=== PATIENT | male | born 1950 | race Caucasian/White ===

== ENCOUNTER 2021-05-20 17:18 | Emergency (ER) | payer MEDICARE, OTHER ==
[~2021-05-20] VITALS: Ht 185.4 cm; Wt 100.0 kg
[~2021-05-20 17:18] MED LIST: ASPIRIN 81M81 MG/TA2 PO; CELEXA 20MG20 MG/TAB PO; HCTZ 25MG TAB25 MG PO; LOPID 600M600 MG/TAB PO; NEURONTIN100 MG/CAP PO; NITRO-DUR0.2 MG/PAT TD; NORVASC 10MG10 MG PO; PRAVACHOL 40MG40 MG PO
[2021-05-20 17:31] VITALS: TEMP 99.4
[2021-05-20 18:53] LABS: BASO % 0.4 % (0.0-2.0); EOS # 0.1 K/mm3 (0.0-0.7); EOS % 1.2 % (0.0-4.0); GRAN # 6.5 K/mm3 (1.4-6.5); GRAN % 81.7 % (42.2-75.2); HEMATOCRIT 44.6 % (42.0-52.0); LYMPH # 0.7 K/mm3 (1.2-3.4); LYMPH % 8.6 % (20.0-51.0); MEAN CELL VOLUME 85 fl (80.0-100.0); MEAN CORPUSCULAR HEMOGLOBIN 29 pg (27-31); MEAN CORPUSCULAR HGB CONC 34 g/dl (33.0-37.0); MEAN PLATELET VOLUME 10.7 fl (7.4-10.4); MONO # 0.6 K/mm3 (0.1-0.6); MONO % 7.5 % (1.7-9.3); PLATELET COUNT 227 K/mm3 (130-400); RED BLOOD COUNT 5.23 M/mm3 (4.20-5.60)
[2021-05-20 19:05] LABS: ALBUMIN 3.3 gm/dL (3.4-4.8); BILIRUBIN,TOTAL 0.7 mg/dL (0.2-1.2); C-REACTIVE PROTEIN 1.62 mg/dL (0.00-0.50); CALCIUM 8.9 mg/dL (8.4-10.2); CREATININE, serum 0.85 mg/dL (0.72-1.25); POTASSIUM 3.4 mmol/L (3.5-4.5); TOTAL PROTEIN 7.3 gm/dL (6.2-8.1)
[2021-05-20 21:48] LABS: COLLECTION METHOD CLEAN CATCH
[2021-05-20 21:56] LABS: MUCOUS Present (NOT PRESENT); PH 6 (5-8); SQUAMOUS EPITHELIAL 0-2 /hpf (0-10); URINE APPEARANCE Clear (CLEAR/HAZY); URINE BACTERIA None Seen /hpf (NONE SEEN); URINE BILIRUBIN Negative (NEGATIVE); URINE BLOOD Negative (NEGATIVE); URINE COLOR Yellow (YELLOW); URINE GLUCOSE Negative (NEGATIVE); URINE KETONE Negative (NEGATIVE); URINE LEUKOCYTE ESTERASE Negative (NEGATIVE); URINE NITRATE Negative (NEGATIVE); URINE PROTEIN(semi-quant) Negative (NEGATIVE); URINE RBC 0-2 /hpf (0-2); URINE UROBILINOGEN Negative (NEGATIVE)
[2021-05-20] MEDS ORDERED: LEVAQUIN 5500 MG/TA1 PO ×2 (22:37)
[2021-05-20 22:51] VITALS: BP 144/78; PULSE 76
== END 2021-05-20 22:51 | disposition home or self-care (01) ==
LOC: COL.ER 17:18
PROVIDERS: Physician Assistant
DX: J01.00 Acute maxillary sinusitis, unspecified (principal); M54.2 Cervicalgia; Z20.822 Contact with and (suspected) exposure to COVID-19
CPT/HCPCS: J1200; J1885; J2765; J7030

== ENCOUNTER 2021-05-22 08:44 | Inpatient (IN) | payer MEDICARE, OTHER ==
[~2021-05-22] VITALS: Ht 185.4 cm; Wt 105.8 kg
[~2021-05-22 08:44] MED LIST changes: +LEVAQUIN 5500 MG/TA1 PO
[2021-05-22 09:35] LABS: BASO % 0.5 % (0.0-2.0); EOS # 0.7 K/mm3 (0.0-0.7); EOS % 10.4 % (0.0-4.0); GRAN # 3.6 K/mm3 (1.4-6.5); GRAN % 56.1 % (42.2-75.2); HEMATOCRIT 42.6 % (42.0-52.0); HEMOGLOBIN 14.4 g/dl (13.5-18.0); LYMPH # 1.5 K/mm3 (1.2-3.4); LYMPH % 23.4 % (20.0-51.0); MEAN CELL VOLUME 85 fl (80.0-100.0); MEAN CORPUSCULAR HEMOGLOBIN 29 pg (27-31); MEAN CORPUSCULAR HGB CONC 34 g/dl (33.0-37.0); MEAN PLATELET VOLUME 10.3 fl (7.4-10.4); MONO # 0.6 K/mm3 (0.1-0.6); MONO % 9.3 % (1.7-9.3); PLATELET COUNT 207 K/mm3 (130-400); REDCELL DISTRIBUTION WIDTH-CV 13.1 % (11.5-14.5)
[2021-05-22 09:56] LABS: ALBUMIN 3.1 gm/dL (3.4-4.8); BILIRUBIN,TOTAL 0.5 mg/dL (0.2-1.2); C-REACTIVE PROTEIN 0.69 mg/dL (0.00-0.50); CALCIUM 8.5 mg/dL (8.4-10.2); CREATININE, serum 0.89 mg/dL (0.72-1.25); POTASSIUM 3.7 mmol/L (3.5-4.5); TOTAL PROTEIN 6.7 gm/dL (6.2-8.1)
[2021-05-22 11:45] LABS: GLUCOSE,CSF 41 mg/dL (40-70); TOTAL PROTEIN,CSF 121 mg/dL (15-45)
[2021-05-22 11:51] LABS: CSF APPEARANCE CLEAR; CSF COLOR COLORLESS
[2021-05-22 11:52] LABS: CSF MONONUCLEAR 99 % (70-100); CSF POLYMORPHONUCLEAR 1 % (0-6); CSF RBC 2 /mm3 (0-0)
[2021-05-22 11:53] LABS: CSF APPEARANCE CLEAR; CSF COLOR COLORLESS
[2021-05-22 11:54] LABS: CSF MONONUCLEAR 100 % (70-100); CSF POLYMORPHONUCLEAR 1 % (0-6); CSF RBC < 1 /mm3 (0-0)
[2021-05-22] MEDS ORDERED: ZOLOFT 100MG100 MG PO (13:09)
[2021-05-22] MEDS ORDERED: FLOMAX 0.40.4 MG/CAP PO (13:09)
--- NOTE | 2021-05-22 16:30 | NUR ---
Pt arrived to medical unit room 317 from ER at this time. Oriented pt to room. Admission assessments and med rec updated. Pt denies headache, nausea, pain, or other concerns at this time. NS running to right AC IV per orders. Denies needs at this time. Continuing to monitor.
[2021-05-22 17:03] VITALS: BP 114/60; PULSE 70; TEMP 98.3
[2021-05-22 19:54] VITALS: BP 120/65; PULSE 67; TEMP 97.9
[2021-05-22 23:27] VITALS: BP 123/61; PULSE 63; TEMP 98.2
[2021-05-23 04:45] VITALS: BP 132/64; PULSE 55; TEMP 98.5
[2021-05-23 06:36] LABS: BASO % 0.4 % (0.0-2.0); EOS % 0.1 % (0.0-4.0); GRAN # 5.3 K/mm3 (1.4-6.5); GRAN % 76.7 % (42.2-75.2); HEMATOCRIT 38.1 % (42.0-52.0); HEMOGLOBIN 13.1 g/dl (13.5-18.0); LYMPH # 0.9 K/mm3 (1.2-3.4); LYMPH % 13.6 % (20.0-51.0); MEAN CELL VOLUME 85 fl (80.0-100.0); MEAN CORPUSCULAR HEMOGLOBIN 29 pg (27-31); MEAN CORPUSCULAR HGB CONC 34 g/dl (33.0-37.0); MEAN PLATELET VOLUME 10.3 fl (7.4-10.4); MONO # 0.6 K/mm3 (0.1-0.6); MONO % 8.5 % (1.7-9.3); PLATELET COUNT 186 K/mm3 (130-400); RED BLOOD COUNT 4.51 M/mm3 (4.20-5.60); REDCELL DISTRIBUTION WIDTH-CV 12.6 % (11.5-14.5)
[2021-05-23 06:48] LABS: CREATININE, serum 0.81 mg/dL (0.72-1.25); POTASSIUM 3.8 mmol/L (3.5-4.5)
[2021-05-23 07:52] VITALS: BP 135/67; PULSE 63; TEMP 97.8
--- NOTE | 2021-05-23 08:10 | NUR ---
Pt assessment complete. Pt is A/O x4. His breathing is even and unlabored on RA. Pt denies SOB. Pt denies any pain, headache or neck aches at this time. No N/V. IVF infusing per orders. No needs at this time. Call light within reach.
--- NOTE | 2021-05-23 11:41 | NUR ---
Discharge instructions and paperwork reviewed with patient, all questions answered at this time. IV to Lhand and RAC dc'd catheter tips intact. Pt wheeled out of facility at this time.
--- NOTE | 2021-05-23 12:32 | NUR ---
cement and concrete plant worker met with patient to discuss discharge plan. Patient currently lives at home with his Kassandra ([phone]) here in [place]. Patient is independent with his ADL's and does not utilize any DME to assist with mobility. PCP is Dr. Cochran and he utilizes [facility] for mediations. Patient reports that his medical DPOA-HC is Maria De Jesus Alejandro. Patient is planning on discharging today and will return home. Discharge plan: Home
--- NOTE | 2021-05-23 13:15 | NUR ---
First visit from the bar roller. No needs right now.
== END 2021-05-23 11:41 | disposition home or self-care (01) | DRG 76 ==
LOC: COL.ER 08:44 → MEDICAL 13:20
PROVIDERS: Emergency Medicine; Nurse Practitioner Family; ADMIT Student in an Organized Health Care Education/Training Program
PROC: 009U3ZX Drainage of Spinal Canal, Percutaneous Approach, Diagnostic (ICD-10-PCS; principal; 2021-05-22)
DX: A87.9 Viral meningitis, unspecified (principal); I10 Essential (primary) hypertension; E78.5 Hyperlipidemia, unspecified; N40.0 Benign prostatic hyperplasia without lower urinary tract symptoms; F32.A Depression, unspecified; I35.0 Nonrheumatic aortic (valve) stenosis; I44.7 Left bundle-branch block, unspecified; I25.10 Atherosclerotic heart disease of native coronary artery without angina pectoris; M19.90 Unspecified osteoarthritis, unspecified site; Z20.822 Contact with and (suspected) exposure to COVID-19; Z79.82 Long term (current) use of aspirin; Z23 Encounter for immunization
CPT/HCPCS: 99222-AI; 99239; J0133; J0290; J0696; J0780; J1100; J1200; J1885; J2550; J2765; J7030; J7050

== ENCOUNTER 2022-04-16 12:05 | Outpatient (RCR) | payer MEDICARE, OTHER ==
[~2022-04-16 12:05] MED LIST changes: +FLOMAX 0.40.4 MG/CAP PO; +ZOLOFT 100MG100 MG PO
== END 2022-04-17 | disposition home or self-care (01) ==
LOC: COL.CR
DX: Z48.812 Encounter for surgical aftercare following surgery on the circulatory system (principal); Z95.3 Presence of xenogenic heart valve

== ENCOUNTER 2022-05-14 11:32 | Outpatient (RCR) | payer MEDICARE, OTHER | END 2022-05-14 15:00 | disposition home or self-care (01) | LOC: COL.CR 11:32 | DX: Z48.812 Encounter for surgical aftercare following surgery on the circulatory system (principal); Z95.2 Presence of prosthetic heart valve ==

== ENCOUNTER 2023-01-09 19:56 | Inpatient (IN) | payer MEDICARE, OTHER ==
[~2023-01-09] VITALS: Ht 185.4 cm; Wt 92.5 kg
[2023-01-09 20:20] LABS: BASO % 0.4 % (0.0-2.0); EOS # 0.3 K/mm3 (0.0-0.7); EOS % 3.8 % (0.0-4.0); GRAN # 6.9 K/mm3 (1.4-6.5); GRAN % 77.3 % (42.2-75.2); HEMATOCRIT 42.4 % (42.0-52.0); HEMOGLOBIN 14.5 g/dl (13.5-18.0); LYMPH # 0.9 K/mm3 (1.2-3.4); LYMPH % 10.2 % (20.0-51.0); MEAN CELL VOLUME 84 fl (80.0-100.0); MEAN CORPUSCULAR HEMOGLOBIN 29 pg (27-31); MEAN CORPUSCULAR HGB CONC 34 g/dl (33.0-37.0); MEAN PLATELET VOLUME 10.2 fl (7.4-10.4); MONO # 0.7 K/mm3 (0.1-0.6); MONO % 7.9 % (1.7-9.3); PLATELET COUNT 158 K/mm3 (130-400); RED BLOOD COUNT 5.03 M/mm3 (4.20-5.60)
[2023-01-09 20:39] LABS: ALBUMIN 3.8 gm/dL (3.4-4.8); BILIRUBIN,TOTAL 0.8 mg/dL (0.2-1.2); C-REACTIVE PROTEIN 0.39 mg/dL (0.00-0.50); CALCIUM 9.3 mg/dL (8.4-10.2); CREATININE, serum 1.14 mg/dL (0.72-1.25); POTASSIUM 3.9 mmol/L (3.5-4.5); TOTAL PROTEIN 7.3 gm/dL (6.2-8.1)
[2023-01-09 20:45] LABS: TROPONIN-I 0.011 ng/mL (0.00-0.033)
[2023-01-09] MEDS ORDERED: LOFIBRA54 MG PO (22:01)
[2023-01-09] MEDS ORDERED: PRILOSEC 20MG20 MG PO (22:01)
[2023-01-09] MEDS ORDERED: AMOXICILLIN 50500 MG PO (22:01)
[2023-01-09] MEDS ORDERED: BIAXIN 500MG T500 MG PO (22:01)
[2023-01-09] MEDS ORDERED: COZAAR 25MG25 MG/TAB PO (22:02)
[2023-01-09] MEDS ORDERED: FLEXERIL 1010 MG/TAB PO (22:02)
[2023-01-09] MEDS ORDERED: PRAVACHOL80 MG PO (22:02)
--- NOTE | 2023-01-09 23:30 | NUR ---
Patient arrived on the unit at this time with his belongings. Rates his pain about a 4/10 at this time, pain meds given. Denies any needs at this time. Assessment and med rec complete. Oriented patient room, bathroom, call light, and phone. Call light and personal items in reach. Bed in low position.
[2023-01-09 23:51] VITALS: BP 132/74; PULSE 65; TEMP 98.4
[2023-01-10] VITALS (9 sets, daily range): BP systolic 104–143; BP diastolic 29–72; PULSE 66–88; TEMP 97.6–102.1
[2023-01-10] LABS: COLLECTION METHOD CLEAN CATCH
[2023-01-10 00:11] LABS: URINE APPEARANCE Clear (CLEAR/HAZY); URINE COLOR Yellow (YELLOW)
[2023-01-10 00:12] LABS: URINE BLOOD Negative (NEGATIVE); URINE GLUCOSE Negative (NEGATIVE); URINE KETONE Negative (NEGATIVE); URINE NITRATE Negative (NEGATIVE); URINE PROTEIN(semi-quant) Negative (NEGATIVE)
--- NOTE | 2023-01-10 01:19 | NUR ---
Vancomycin Initial Dosing Pharmacy Note Ordering provider: Lisa Bolaños E., MD Indication/duration: PNA x 5 days Relevant comorbidities: Was on amox/clinda for H.Pylori since 01/06. HTN LABS: Tmax = 100.5 F, SCr = 1.14 (baseline closer to 0.8) Recommendation: Will draw troughs and follow levels. Loading dose: 1.5 grams Maintenance dose: 1.25 grams every 12 hours Trough goal: 15-20 ug/mL
--- NOTE | 2023-01-10 06:00 | NUR ---
Patient resting in bed. Denies any pain or needs at this time. Call light and personal items in reach. Bed in low position.
[2023-01-10 06:47] LABS: BASO % 0.5 % (0.0-2.0); EOS # 0.4 K/mm3 (0.0-0.7); EOS % 5.8 % (0.0-4.0); GRAN # 4.5 K/mm3 (1.4-6.5); GRAN % 60.3 % (42.2-75.2); HEMOGLOBIN 13.1 g/dl (13.5-18.0); LYMPH # 1.7 K/mm3 (1.2-3.4); MEAN CELL VOLUME 86 fl (80.0-100.0); MEAN CORPUSCULAR HEMOGLOBIN 29 pg (27-31); MEAN CORPUSCULAR HGB CONC 34 g/dl (33.0-37.0); MEAN PLATELET VOLUME 10.6 fl (7.4-10.4); MONO # 0.7 K/mm3 (0.1-0.6); PLATELET COUNT 142 K/mm3 (130-400); RED BLOOD COUNT 4.52 M/mm3 (4.20-5.60)
[2023-01-10 06:58] LABS: CALCIUM 8.6 mg/dL (8.4-10.2); CREATININE, serum 0.96 mg/dL (0.72-1.25); POTASSIUM 3.8 mmol/L (3.5-4.5)
--- NOTE | 2023-01-10 09:24 | NUR ---
Initial visit; Patient thanked Sales And Service Engineer for looking in on him and offering God's blessings. Patient pleased to be kept in Sales And Service Engineer's prayers.
[2023-01-10] MEDS ORDERED: VITAMIN B12 781 TAB (09:27)
[2023-01-10] MEDS ORDERED: VTAMINC250TA (09:28)
--- NOTE | 2023-01-10 09:43 | NUR ---
PT DOING WELL THIS MORNING. SITTING IN BED EATING BREAKFAST. PT DID COMPLAIN OF HEADACHE, PRN TYLENOL GIVEN. PT STATED NO SHORTNESS OF BREATH OR DIFFICULTY BREATHING, INTERMITTENT NON PRODUCTIVE COUGHING AT TIMES, AND STATED HE DOES FEEL SLIGHTLY CONGESTED.
--- NOTE | 2023-01-10 10:02 | NUR ---
Software Publisher collaborated with [facility] Zeina to conduct Medicare GALLEGOS brief. Patient acknowledges brief an signs form. Original placed in chart, copy was provided to Patient.
--- NOTE | 2023-01-10 16:08 | NUR ---
Section Hand Helper met with Patient at bedside to conduct Care Managment Assessment and discuss discharge planning. Patient lives with his in [place], [place] ans reports to be established with Dr. Benjamin for PCP. Patient is covered by [facility] and [email or web address] for insurance and requests discharge medication be sent to [facility]. Patient denies the use of DME and states that when ambulating prior to admission he felt "wobbly". Patient states that his DPOAHC is his Maria De Jesus. Namita is anticipated to discharge home tomorrow.
[2023-01-10 17:28] LABS: GLUCOSE,CSF 54 mg/dL (40-70); TOTAL PROTEIN,CSF 161 mg/dL (15-45)
[2023-01-10 17:29] LABS: CSF APPEARANCE CLEAR; CSF COLOR COLORLESS
[2023-01-10 17:30] LABS: CSF RBC 2 /mm3 (0-0)
[2023-01-10 18:19] LABS: CSF MONONUCLEAR 99 % (70-100); CSF POLYMORPHONUCLEAR 1 % (0-6)
--- NOTE | 2023-01-10 19:27 | NUR ---
Patient received from Danielle Patel RN around 1600. Patient reports ongoing headache with no relief from Tylenol. Tremors continue. Patient urinating often, urine noted to be clear and pale yellow. Ambulates self to bathroom, gait slightly unsteady due to tremors. Recommend SBA for safety. Patient off unit for about an hour for LP, returned around 1700. Currently laying flat per orders with Acyclovir running per orders. LR not running at this time due to incompatability with antibiotic orders, physician aware. Droplet/contact precautions in place. Patient handoff complete to mini shifter at this time.
[2023-01-10 19:36] LABS: BASO % 0.5 % (0.0-2.0); EOS # 0.2 K/mm3 (0.0-0.7); EOS % 2.2 % (0.0-4.0); GRAN # 6.4 K/mm3 (1.4-6.5); GRAN % 74.4 % (42.2-75.2); HEMOGLOBIN 13.4 g/dl (13.5-18.0); LYMPH # 1.3 K/mm3 (1.2-3.4); LYMPH % 14.6 % (20.0-51.0); MEAN CELL VOLUME 84 fl (80.0-100.0); MEAN CORPUSCULAR HEMOGLOBIN 29 pg (27-31); MEAN CORPUSCULAR HGB CONC 34 g/dl (33.0-37.0); MEAN PLATELET VOLUME 9.9 fl (7.4-10.4); MONO # 0.7 K/mm3 (0.1-0.6); MONO % 7.6 % (1.7-9.3); PLATELET COUNT 141 K/mm3 (130-400); RED BLOOD COUNT 4.63 M/mm3 (4.20-5.60); REDCELL DISTRIBUTION WIDTH-CV 13.9 % (11.5-14.5)
--- NOTE | 2023-01-10 23:35 | NUR ---
patient is lying in bed flat after lumbar puncture, alert and oriented x4. pt denies chest pain and reports experiencing some shortness of breath when transferring to and from CT. pt reports headache rated as 5/10, cold rag applied to forehead, tylenol per pt request and toradol, reglan, and benadryl given per orders. upon reassessment, pt rated headache as 4/10. pt is afebrile at this time. IV in RAC is patent, site is clean dry and intact. no remarkable skin findings. pt has no further needs, questions, or concerns at this time. call light within reach, will continue to monitor.
[2023-01-11] VITALS (12 sets, daily range): BP systolic 118–153; BP diastolic 53–69; PULSE 76–89; TEMP 98.9–101.5
--- NOTE | 2023-01-11 03:08 | NUR ---
patient noted to have a nonproductive dry cough. pt having visible chills, oral temp measured as 98.7. warm blankets provided and room temperature turned up at this time. will continue to monitor.
[2023-01-11 06:12] LABS: BASO % 0.5 % (0.0-2.0); CALCIUM 8.6 mg/dL (8.4-10.2); CREATININE, serum 0.94 mg/dL (0.72-1.25); EOS # 0.2 K/mm3 (0.0-0.7); EOS % 2.2 % (0.0-4.0); GRAN # 6.5 K/mm3 (1.4-6.5); GRAN % 75.5 % (42.2-75.2); HEMATOCRIT 38.1 % (42.0-52.0); HEMOGLOBIN 12.9 g/dl (13.5-18.0); LYMPH % 11.9 % (20.0-51.0); MEAN CELL VOLUME 85 fl (80.0-100.0); MEAN CORPUSCULAR HEMOGLOBIN 29 pg (27-31); MEAN CORPUSCULAR HGB CONC 34 g/dl (33.0-37.0); MEAN PLATELET VOLUME 10.8 fl (7.4-10.4); MONO # 0.8 K/mm3 (0.1-0.6); MONO % 9.3 % (1.7-9.3); PLATELET COUNT 136 K/mm3 (130-400); POTASSIUM 3.9 mmol/L (3.5-4.5); RED BLOOD COUNT 4.47 M/mm3 (4.20-5.60); REDCELL DISTRIBUTION WIDTH-CV 13.9 % (11.5-14.5)
--- NOTE | 2023-01-11 20:30 | NUR ---
Initial shift assesment done- states pain to neck/head 06/25,, will give Ibuprofen at this time, temp 99.1, Up to bathroom with assist, fairly steady feet, alert/oriented but forgetful at times, tele on- NSR.
[2023-01-12] VITALS (15 sets, daily range): BP systolic 105–141; BP diastolic 55–90; PULSE 74–88; TEMP 98–103.1
--- NOTE | 2023-01-12 05:00 | NUR ---
Awake, helped up to bathroom, very insteady, shaking, no temp at this time but will give Ibuprofen now, back to bed , alarm on, pt is forgetful/confused this morning- VSS
[2023-01-12 05:38] LABS: BASO % 0.3 % (0.0-2.0); EOS # 0.5 K/mm3 (0.0-0.7); EOS % 6.7 % (0.0-4.0); GRAN # 5.4 K/mm3 (1.4-6.5); GRAN % 70.5 % (42.2-75.2); HEMATOCRIT 38.8 % (42.0-52.0); HEMOGLOBIN 13.2 g/dl (13.5-18.0); LYMPH % 12.5 % (20.0-51.0); MEAN CELL VOLUME 84 fl (80.0-100.0); MEAN CORPUSCULAR HEMOGLOBIN 29 pg (27-31); MEAN CORPUSCULAR HGB CONC 34 g/dl (33.0-37.0); MEAN PLATELET VOLUME 10.8 fl (7.4-10.4); MONO # 0.7 K/mm3 (0.1-0.6); MONO % 9.3 % (1.7-9.3); PLATELET COUNT 144 K/mm3 (130-400); REDCELL DISTRIBUTION WIDTH-CV 13.9 % (11.5-14.5)
[2023-01-12 05:59] LABS: CALCIUM 8.6 mg/dL (8.4-10.2); CREATININE, serum 0.93 mg/dL (0.72-1.25)
--- NOTE | 2023-01-12 09:10 | NUR ---
PATIENT WAS ALERT AND HAD SOME FORETFULNESS WHEN SPEAKING. HE IS ORIENTED TO SELF AT TIMES. PATIENT IS LATING IN BED RESTING. PATIENT REPORTED PAIN IN HEAD/NECK AREA. PRN WAS GIVEN. PATIENT CALL LIGHT WITHIN REACH.
--- NOTE | 2023-01-12 20:30 | NUR ---
Initial shift assessment done- assisted up to bathroom with assist, overall fairly steady on feet, does have some shaking noted to arms/hands, temp 99.4, Alert/overal oriented but says some things that are a little off, tele on NSR, Iv fluids of NS at 75cc/hr, Continues on Droplet precautions. VSS. Bed alarm on, Call light in reach. States headache is just 2/10 at this time.
[2023-01-13] VITALS (15 sets, daily range): BP systolic 112–155; BP diastolic 59–69; PULSE 67–92; TEMP 97.9–99.5
--- NOTE | 2023-01-13 05:07 | NUR ---
Quiet night, VSS, highest temp this shift 99.4,, states has a sore throat this morning- tylenol given. Did sleep some during the night-- is up to the bathroom to void every 1-2hrs during the shift.
[2023-01-13 08:34] LABS: BASO % 0.4 % (0.0-2.0); EOS # 0.7 K/mm3 (0.0-0.7); EOS % 6.8 % (0.0-4.0); GRAN # 6.5 K/mm3 (1.4-6.5); GRAN % 68.3 % (42.2-75.2); HEMATOCRIT 40.4 % (42.0-52.0); HEMOGLOBIN 13.8 g/dl (13.5-18.0); LYMPH # 1.4 K/mm3 (1.2-3.4); LYMPH % 14.5 % (20.0-51.0); MEAN CELL VOLUME 86 fl (80.0-100.0); MEAN CORPUSCULAR HEMOGLOBIN 29 pg (27-31); MEAN CORPUSCULAR HGB CONC 34 g/dl (33.0-37.0); MEAN PLATELET VOLUME 10.5 fl (7.4-10.4); MONO # 0.9 K/mm3 (0.1-0.6); MONO % 9.4 % (1.7-9.3); PLATELET COUNT 130 K/mm3 (130-400); RED BLOOD COUNT 4.71 M/mm3 (4.20-5.60); REDCELL DISTRIBUTION WIDTH-CV 13.9 % (11.5-14.5)
[2023-01-13 08:51] LABS: CALCIUM 8.9 mg/dL (8.4-10.2); CREATININE, serum 0.83 mg/dL (0.72-1.25); POTASSIUM 3.9 mmol/L (3.5-4.5)
--- NOTE | 2023-01-13 09:37 | NUR ---
PATIENTS SPECIMEN COLLECTED SENT TO LAB. PATIENT REPORTS HAVING TASTE CHANGES. HE EXPRESSES FOOD DOESN'T TASTE THE SAME ANYMORE. CALL LIGHT WITH IN REACH. ALARM ON
[2023-01-13 09:51] LABS: STREP SCREEN NEGATIVE
[2023-01-13 10:07] LABS: HIV 1/2 Antibodies Non-Reactive; HIV-1p24 Antigen Non-Reactive
--- NOTE | 2023-01-13 21:24 | NUR ---
At beginning of shift, patient was in room 356. Call light was not working, and staff were unable to get call light to work. Work order placed, and patient moved to room 311. Updated patient's daughter, MCKINLEY Pretty on for tonight. Also asked if patient needed to continue to be on Droplet precautions, as he had been on ABX for a few days, and result was negative. Agreed that isoloation could be D/C'd. Patient continues on ABX per orders. Voices no questions, needs, or concerns at this time. In bed with call light within reach. High fall risk precautions in place. Bed alarm on.
[2023-01-14] VITALS (11 sets, daily range): BP systolic 118–138; BP diastolic 62–71; PULSE 76–87; TEMP 97.6–99
--- NOTE | 2023-01-14 06:09 | NUR ---
Patient has denied having pain and discomfort this shift. Afebrile this shift. Voices no questions, needs, or concerns at this time. In bed with call light within reach. High fall risk precautions in place. Bed alarm on.
--- NOTE | 2023-01-14 07:00 | NUR ---
PT RESTING IN BED. PT IS ON RA. PT IS SR ON TELE. PT IS AXOX3 BUT CAN BE FORGETFUL. CALL LIGHT WITHIN REACH. BED ALARM ACTIVE. FALL PRECAUTIONS IN PLACE. INSTRUCTED PT TO CALL WITH ALL NEEDS.
[2023-01-14 07:05] LABS: BASO % 0.4 % (0.0-2.0); EOS % 8.7 % (0.0-4.0); GRAN # 8.1 K/mm3 (1.4-6.5); GRAN % 73.3 % (42.2-75.2); HEMATOCRIT 36.9 % (42.0-52.0); HEMOGLOBIN 12.4 g/dl (13.5-18.0); LYMPH # 1.1 K/mm3 (1.2-3.4); LYMPH % 9.5 % (20.0-51.0); MEAN CELL VOLUME 86 fl (80.0-100.0); MEAN CORPUSCULAR HEMOGLOBIN 29 pg (27-31); MEAN CORPUSCULAR HGB CONC 34 g/dl (33.0-37.0); MEAN PLATELET VOLUME 10.7 fl (7.4-10.4); MONO # 0.8 K/mm3 (0.1-0.6); MONO % 7.6 % (1.7-9.3); PLATELET COUNT 149 K/mm3 (130-400); RED BLOOD COUNT 4.29 M/mm3 (4.20-5.60); REDCELL DISTRIBUTION WIDTH-CV 14.3 % (11.5-14.5)
[2023-01-14 07:18] LABS: ALBUMIN 3.3 gm/dL (3.4-4.8); BILIRUBIN,TOTAL 0.6 mg/dL (0.2-1.2); CALCIUM 8.6 mg/dL (8.4-10.2); CREATININE, serum 0.8 mg/dL (0.72-1.25); MAGNESIUM 2.2 mg/dL (1.6-2.6); POTASSIUM 3.8 mmol/L (3.5-4.5); TOTAL PROTEIN 6.4 gm/dL (6.2-8.1)
[2023-01-14 11:52] LABS: MONOSCREEN NEGATIVE
[2023-01-14 12:09] LABS: HSV 2 DNA PCR QUAL Negative (Negative)
--- NOTE | 2023-01-14 20:13 | NUR ---
Patient assessed around 193. Alert and oriented, and able to make needs known. Denies having pain and discomfort. Peripheral INT to right AC and left hand. Complaining of sore throat. Used sore throat spray and given cough drop. Redness to back to throat continues. Hoarse voice. Encouraged to drink fluids. Denies SOB and dyspnea. LS CTA in upper lobes, diminished in lower. HRR. Telemetry in place. BSAx4. Voices no questions, needs, or concerns at this time. In bed with call light within reach. High fall risk precautions in place. Bed alarm on.
[2023-01-15] VITALS (7 sets, daily range): BP systolic 118–133; BP diastolic 55–78; PULSE 79–91; TEMP 98.4–99.1
[2023-01-15 05:28] LABS: BASO % 0.3 % (0.0-2.0); EOS # 0.4 K/mm3 (0.0-0.7); EOS % 3.7 % (0.0-4.0); HEMOGLOBIN 12.6 g/dl (13.5-18.0); LYMPH # 0.9 K/mm3 (1.2-3.4); LYMPH % 8.2 % (20.0-51.0); MEAN CELL VOLUME 85 fl (80.0-100.0); MEAN CORPUSCULAR HEMOGLOBIN 29 pg (27-31); MEAN CORPUSCULAR HGB CONC 34 g/dl (33.0-37.0); MEAN PLATELET VOLUME 10.6 fl (7.4-10.4); MONO # 0.8 K/mm3 (0.1-0.6); MONO % 7.3 % (1.7-9.3); PLATELET COUNT 159 K/mm3 (130-400); RED BLOOD COUNT 4.32 M/mm3 (4.20-5.60); REDCELL DISTRIBUTION WIDTH-CV 14.1 % (11.5-14.5)
[2023-01-15 05:32] LABS: HEMATOCRIT 36.7 % (42.0-52.0)
[2023-01-15 05:41] LABS: CALCIUM 8.8 mg/dL (8.4-10.2); CREATININE, serum 0.81 mg/dL (0.72-1.25); POTASSIUM 3.9 mmol/L (3.5-4.5)
--- NOTE | 2023-01-15 05:51 | NUR ---
Temp max 99.1 this shift. Has denied having pain and discomfort. Received IV ABX and antiviral per orders. Voices no questions, needs, or concerns at this time. In bed with call light within reach. High fall risk precautions in place. Bed alarm on.
--- NOTE | 2023-01-15 10:02 | NUR ---
Precision Dancer collaborated with Treatment Team during rounding to assess Patient for discharge readiness. Patient is anticipated to discharge home today. PT evals home v home with OP PT. SW discussed OP PT with Patient who is agreeable to OP PT. Patient called his daughter to assist with agency preference. Maria De Jesus recommends Edgar Davison with [facility] and requests [place] [facility].
--- NOTE | 2023-01-15 10:17 | NUR ---
director of engineering contacted [facility] [place] to schedule appointment for Patient with Provider Edgar Davison. Appointment is scheduled for 1500 on 01-23-23.
[2023-01-15 10:51] LABS: HERPES SIMPLEX 2 VIRUS IGM IFA <1:10 (<1:10)
--- NOTE | 2023-01-15 11:01 | NUR ---
Assessment completed earlier this am. Patient A/O x4. Reports throat and tongue pain, rating pain 10/10. Upon examination, patient has white patches in the back of his throat and on his tongue. Reports it as a burning sensation. Voice hoarse. Reports difficulty swallowing. Lab called to report that strep was negative but found thrush. Dr. Barrett notified and order received for Nystatin swish and swallow. IV antiviral d/c'd- oral antibiotics initiated. Pt reports that his throat and tongue pain have lessened since Nystatin administered.
[2023-01-15] MEDS ORDERED: NYSTATIN OR100 MU/ML PO (11:44)
[2023-01-15] MEDS ORDERED: HALLS9.1 MG MM (11:45)
[2023-01-15] MEDS ORDERED: MUCUS RELIEF200 MG PO (11:45)
[2023-01-15] MEDS ORDERED: CHLORASEPTIC 1180 M3 MM (11:46)
--- NOTE | 2023-01-15 12:25 | NUR ---
Discharge instructions reviewed with patient- verbalizes understanding. Tele d/c'd. INT to RAC and LW d/c'd. Pt reports throat and tongue pain have decreased to a 6/. Awaiting family to arrive at this time.
--- NOTE | 2023-01-15 13:26 | NUR ---
Pt escorted via w/c to private vehicle and discharged home with family.
[2023-01-16 05:53] LABS: HERPES SIMPLEX TYPE 1 IGG INT Positive (Negative); HERPES SIMPLEX TYPE 2 IGG INT Negative (Negative)
--- NOTE | 2023-01-16 15:24 | NUR ---
Shuttle Preparation Supervisor sent discharge orders to [facility].
== END 2023-01-15 13:27 | disposition home or self-care (01) | DRG 75 ==
LOC: COL.ER 19:56 → MEDICAL 22:59
PROVIDERS: Internal Medicine Infectious Disease; Nurse Practitioner Family; Nurse Practitioner Primary Care; Physician Assistant; ADMIT Hospitalist
DX: A87.9 Viral meningitis, unspecified (principal); B37.0 Candidal stomatitis; I25.10 Atherosclerotic heart disease of native coronary artery without angina pectoris; R51.9 Headache, unspecified; I10 Essential (primary) hypertension; E78.5 Hyperlipidemia, unspecified; I35.0 Nonrheumatic aortic (valve) stenosis; F32.A Depression, unspecified; G89.29 Other chronic pain
CPT/HCPCS: G0378; J0133; J0290; J0696; J1200; J1650; J1885; J2270; J2543; J2550; J2765; J3370; J3475; J7030; J7050; J7120; Q3014; Q9967

== ENCOUNTER 2023-02-25 15:45 | Outpatient (RCR) | payer MEDICARE, OTHER ==
[~2023-02-25 15:45] MED LIST changes: +AMOXICILLIN 50500 MG PO; +BIAXIN 500MG T500 MG PO; +CHLORASEPTIC 1180 M3 MM; +COZAAR 25MG25 MG/TAB PO; +FLEXERIL 1010 MG/TAB PO; +HALLS9.1 MG MM; +LOFIBRA54 MG PO; +MUCUS RELIEF200 MG PO; +NYSTATIN OR100 MU/ML PO; +PRAVACHOL80 MG PO; +PRILOSEC 20MG20 MG PO; +VITAMIN B12 781 TAB; +VTAMINC250TA
== END 2023-03-17 | disposition home or self-care (01) ==
LOC: WSPT
DX: R53.1 Weakness (principal); R51.9 Headache, unspecified; A87.9 Viral meningitis, unspecified

== ENCOUNTER 2023-03-22 05:34 | Day surgery (SDC) | payer MEDICARE ==
[~2023-03-22] VITALS: Ht 185.4 cm; Wt 91.1 kg
[2023-03-22 07:20] VITALS: BP 132/86; PULSE 56; TEMP 97.2
[2023-03-22 07:35] VITALS: BP 143/84; PULSE 52
[2023-03-22 07:50] VITALS: BP 135/78; PULSE 54
[2023-03-22 07:59] VITALS: BP 137/78; PULSE 64; TEMP 97
--- NOTE | 2023-03-22 08:02 | NUR ---
0540 Pt ambulatory to bay 1 w/ steady gait, breathing even and unlabored. Pt is alert and oriented, accompanied by his daughter. Consents reviewed and signed by pt. IV established. LR infusing via gravity at KVO. Call light in reach. Warm blanket provided.
--- NOTE | 2023-03-22 08:05 | NUR ---
0720 RETURNS TO ROOM 1 PER CART. AWAKE, ALERT. RESP UNLABORED. AMBULATES TO RECLINER WITH STANDBY ASSIST. DENIES NAUSEA, ABD/CHEST PAIN OR DYSPHAGIA. VITAL SIGNS OBTAINED. CALL LIGHT AT SIDE. DAUGHTER IN ROOM 0735 TOLERATES PO JUICE WITHOUT NAUSEA. DISCHARGE INSTRUCTIONS REVIEWED, PATIENT VERBALIZES UNDERSTANDING. COPY PROVIDED IN DISCHARGE FOLDER. [address] TO V[address]IT WITH DR PRIOR TO DISCHARGE. DRESSES SELF 0758 EVELYN SAUCEDO HERE TO VISIT WITH PATIENT
== END 2023-03-22 08:08 | disposition home or self-care (01) ==
LOC: SDCO 05:34
DX: K30 Functional dyspepsia (principal); R63.4 Abnormal weight loss; R63.0 Anorexia
CPT/HCPCS: J2704; J7120

== ENCOUNTER → 2023-06-25 | Outpatient (CLI) | payer MEDICARE, OTHER | LOC: COL.RAD 13:41 | DX: R10.13 Epigastric pain (principal) ==